=== PATIENT | female | born 1990 | race Two or more races ===

== ENCOUNTER 2024-07-01 18:41 | Emergency (ER) | payer SELFPAY ==
[~2024-07-01] VITALS: Ht 157.5 cm; Wt 54.0 kg
[2024-07-01 18:54] VITALS: BP 114/64; PULSE 90; RESP 17; O2SAT 99
[2024-07-01 19:13] LABS: Urine Bacteria None Seen /hpf (None Seen)
[2024-07-01 19:23] LABS: Urine Blood Negative /uL (Negative); Urine Clarity Clear (Clear); Urine Color Light-Yellow (Yellow); Urine Protein, UAD Negative (Negative); Urine Specific Gravity 1.008 (1.001-1.035); Urine Urobilinogen Normal (Negative); Urine WBC <1 /hpf (0 - 5); Urine pH 5.5 (5.0-9.0)
[2024-07-01 19:29] LABS: Basophils # (auto) 0 10 ^3/uL (0-0.2); Basophils % (auto) 0.3 % (0.0-2.0); Eosinophils # (auto) 0.1 10 ^3/uL (0-0.8); Eosinophils % (auto) 1.9 % (0.0-7.0); Hematocrit 41.3 % (36.0-46.0); Hemoglobin 14.4 g/dL (12.2-16.2); Lymphocytes # (auto) 1.2 10 ^3/uL (0.4-5.4); Lymphocytes % (auto) 26.6 % (10.0-50.0); Mean Corpuscular Hemoglobin 31.9 pg (28.0-32.0); Mean Corpuscular Hgb Conc. 34.7 g/dL (32.0-36.0); Mean Corpuscular Volume 91.9 fL (80.0-100.0); Monocytes # (auto) 0.4 10 ^3/uL (0-1.3); Monocytes % (auto) 9.2 % (0.0-12.0); Neutrophils # (auto) 2.8 10 ^3/uL (1.6-8.6); Nucleated Red Blood Cells % 0.1 %; Platelet Count (auto) 278 10^3/uL (140-450); Red Cell Distribution Width 12.5 % (11.8-14.3); White Blood Cell 4.5 10^3/uL (4.4-10.8)
[2024-07-01 19:46] LABS: Alanine Aminotransferase 14 U/L (7-40); Albumin 4.9 g/dL (3.2-4.8); Alkaline Phosphatase 67 U/L (46-116); Anion Gap 7 (5-15); Aspartate Aminotransferase 14 U/L (13-40); BUN/Creatinine Ratio 11.1 (10.0-20.0); Bilirubin, Total 0.5 mg/dL (0.2-1.0); Blood Urea Nitrogen 8 mg/dL (9-23); Calcium 9.5 mg/dL (8.7-10.4); Carbon Dioxide 25 mmol/L (20-31); Chloride 104 mmol/L (98-107); Glucose 94 mg/dL (74-106); Potassium 3.5 mmol/L (3.5-5.1); Sodium 136 mmol/L (136-145); Total Protein 7.3 g/dL (5.7-8.2)
[2024-07-02 02:35] LABS: Hepatitis B Surface Antibody Negative (Negative)
[2024-07-02 02:47] LABS: Hepatitis B Surface Antigen Negative (Negative)
== END 2024-07-01 21:22 | disposition home or self-care (01) ==
LOC: ER 18:41
DX: R19.7 Diarrhea, unspecified (principal); R10.2 Pelvic and perineal pain; R50.9 Fever, unspecified; Z77.21 Contact with and (suspected) exposure to potentially hazardous body fluids
CPT/HCPCS: 36415; 80053; 81001; 84702; 85025; 86703; 86706; 86803; 87340

== ENCOUNTER → 2024-08-28 | Outpatient (CLI) | payer BC ==
[2024-08-28 08:27] LABS: Basophils # (auto) 0 10 ^3/uL (0-0.2); Basophils % (auto) 0.5 % (0.0-2.0); Eosinophils # (auto) 0.1 10 ^3/uL (0-0.8); Eosinophils % (auto) 2.1 % (0.0-7.0); Hematocrit 41.5 % (36.0-46.0); Lymphocytes # (auto) 1.3 10 ^3/uL (0.4-5.4); Lymphocytes % (auto) 22.5 % (10.0-50.0); Mean Corpuscular Hgb Conc. 33.7 g/dL (32.0-36.0); Mean Corpuscular Volume 91.8 fL (80.0-100.0); Monocytes # (auto) 0.4 10 ^3/uL (0-1.3); Monocytes % (auto) 7.1 % (0.0-12.0); Neutrophils # (auto) 3.8 10 ^3/uL (1.6-8.6); Neutrophils % (auto) 67.8 % (37.0-80.0); Platelet Count (auto) 296 10^3/uL (140-450); Red Blood Cells 4.51 10^6/uL (4.0-5.20); Red Cell Distribution Width 12.7 % (11.8-14.3); White Blood Cell 5.6 10^3/uL (4.4-10.8)
[2024-08-28 08:35] LABS: Urine Bacteria FEW /hpf (None Seen); Urine Blood Negative /uL (Negative); Urine Budding Yeast OCCASIONAL /hpf (None Seen); Urine Clarity Turbid (Clear); Urine Color Colorless (Yellow); Urine Mucus FEW (None Seen); Urine Protein, UAD TRACE (Negative); Urine Specific Gravity 1.024 (1.001-1.035); Urine Urobilinogen Normal (Negative); Urine WBC 8 /hpf (0 - 5)
[2024-08-28 08:51] LABS: Alanine Aminotransferase 26 U/L (7-40); Albumin 4.5 g/dL (3.2-4.8); Alkaline Phosphatase 67 U/L (46-116); Anion Gap 7 (5-15); Aspartate Aminotransferase 15 U/L (13-40); BUN/Creatinine Ratio 13.6 (10.0-20.0); Bilirubin, Total 0.6 mg/dL (0.2-1.0); Blood Urea Nitrogen 9 mg/dL (9-23); Calcium 9.9 mg/dL (8.7-10.4); Carbon Dioxide 28 mmol/L (20-31); Chloride 104 mmol/L (98-107); Cholesterol 242 mg/dL (< 200); Glucose 95 mg/dL (74-106); HDL Cholesterol 77 mg/dL (40-59); LDL Cholesterol 144 mg/dL (< 100); Magnesium 2.2 mg/dL (1.6-2.6); Potassium 4.2 mmol/L (3.5-5.1); Sodium 139 mmol/L (136-145); Triglycerides 164 mg/dL (< 150)
[2024-08-28 09:12] LABS: Free T4 (Free Thyroxine) 1.33 ng/dL (0.89-1.76)
[2024-08-29 05:08] LABS: RPR Non Reactive (Non Reactive)
[2024-08-29 12:06] LABS: Chlamydia Trachomatis, NAA Negative (Negative); Neisseria gonorrhoeae, NAA Negative (Negative)
== END | disposition home or self-care (01) ==
LOC: LAB 07:54
DX: Z00.01 Encounter for general adult medical examination with abnormal findings (principal); Z11.3 Encounter for screening for infections with a predominantly sexual mode of transmission; E16.2 Hypoglycemia, unspecified
CPT/HCPCS: 36415; 80053; 80061; 81001; 82306; 82607; 83036; 83735; 84439; 84443; 85025; 86592; 86703; 86704; 86706; 86708; 86803; 87340

== ENCOUNTER 2024-10-07 19:03 | Inpatient (IN) | payer BC ==
[~2024-10-07] VITALS: Ht 157.5 cm; Wt 56.1 kg
--- NOTE | 2024-10-07 19:16 | ED.PDOC ---
HPI Comments 34 y.o female presents to the ED for a chief complaint of left sided chest pain. Patient describes pain as a pressure sensation that presented while at work, became sharp radiating to her head and associated with dizziness. Patient reports no syncopal event occurred and that dizziness shortly after subsided on its own. Patient states initial chest pressure presented 3 weeks ago but today worsened. 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 She denies any nausea, vomiting, diarrhea, abdominal pain, fever, chills, back pain or leg swelling. She denies medical history or allergies. Chief Complaint: Chest Pain Time Seen by MD: 19:08 Primary Care Provider: NONE Reviewed Notes: Nurses Notes, Medications, Allergies Allergies: Coded Allergies: NO KNOWN ALLERGIES (Unverified , 07/01/24) Information Source: Patient Mode of Arrival: Ambulatory Severity: Moderate Timing: Hours Duration: Since onset Location: Chest (L) Radiation: Other Quality: Pressure Onset: At Rest Cardiac Risk Factors: None PE Risk Factors: None History of: None Modifying Factors: Nothing Associated Signs and Symptoms: SOB Past Medical History PAST MEDICAL HISTORY: Denies Surgical History: Hernia Repair Surgical History (Other): breast augmentation, tummy tuck 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 SETTER 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 Family History Family History: Reviewed,noncontributory to illness, Unknown Social History Smoker: Non-Smoker Alcohol: Occasionally Drugs: Denies Drug Use Lives In: Home Constitutional: denies: chills, diaphoresis, fatigue, fever, malaise, sweats, weakness, others EENTM: denies: blurred vision, double vision, ear bleeding, ear discharge, ear drainage, ear pain, ear ringing, eye pain, eye redness, hearing loss, mouth pain, mouth swelling, nasal discharge, nose bleeding, nose congestion, nose pain, photophobia, tearing, throat pain, throat swelling, voice changes, others Respiratory: reports: SOB at rest, shortness of breath; denies: cough, hemoptysis, orthopnea, SOB with excertion, stridor, wheezing, others Cardiovascular: reports: chest pain; denies: dizzy spells, diaphoresis, Dyspnea on exertion, edema, irregular heart beat, left arm pain, lightheadedness, palpitations, PND, syncope, others Gastrointestinal: denies: abdomen distended, abdominal pain, blood streaked bowels, constipated, diarrhea, dysphagia, difficulty swallowing, hematemesis, melena, nausea, poor appetite, poor fluid intake, rectal bleeding, rectal pain, vomiting, others Genitourinary: denies: abnormal vagina bleeding, burning, dyspareunia, dysuria, flank pain, frequency, hematuria, incontinence, pain, , vagina discharge, urgency, others Neurological: reports: dizziness, headache; denies: fainting, left sided numbness, left sided weakness, numbness, paresthesia, pre-existing deficit, right sided numbness, right sided weakness, seizure, speech problems, tingling, tremors, weakness, others Musculoskeletal: denies: back pain, gout, joint pain, joint swelling, muscle pain, muscle stiffness, neck pain, others Integumetry: denies: bruises, change in color, change in hair/nails, dryness, laceration, lesions, lumps, rash, wounds, others Allergic/Immunocompromised: denies: Difficulty Healing, Frequent Infections, Hives, Itching, others Hematologic/Lymphatic: denies: anemia, blood clots, easy bleeding, easy bruising, swollen glands, others Endocrine: denies: excessive hunger, excessive sweating, excessive thirst, excessive urination, flushing, intolerance to cold, intolerance to heat, unexplained weight gain, unexplained weight loss, others Psychiatric: denies: anxiety, bipolar disorder, depression, hopeless, panic disorder, schizophrenia, sleepless, suicidal, others All Other Systems: Reviewed and Negative Physical Exam General Appearance: No Apparent Distress HEENT: Normal ENT Inspection, Pharynx Normal, TMs Normal Neck: Full Range of Motion, Non-Tender, Normal, Normal Inspection Respiratory: Chest Non-Tender, Lungs Clear, No Accessory Muscle Use, No Respiratory Distress, Normal Breath Sounds Cardiovascular: No Edema, No JVD, No Murmur, No Gallop, Normal Peripheral Pulses, Regular Rate/Rhythm Breast Exam: Deferred Gastrointestinal: No Organomegaly, Non Tender, No Pulsatile Mass, Normal Bowel Sounds, Soft Genitalia: Deferred Pelvic: Deferred Rectal: Deferred Extremities: No calf tenderness, Normal capillary refill, Normal inspection, Normal range of motion, Non-tender, No pedal edema Musculoskeletal : Apperance: Normal Neurologic: Alert, bed rubber II-XII nml as Tested, No Motor Deficits, Normal Affect, Normal Mood, No Sensory Deficits Cerebellar Function: Normal Reflexes: Normal Skin: Dry, Normal Color, Warm Lymphatic: No Adenopathy EKG EKG : Pulse Rate (adult): 100 Cardiac Rhythm: ST Was a procedure done? Was a procedure done?: No CP Differential Dx Differential Diagnosis: N/A Differential Diagnosis: Angina, Chest Wall Pain, Costochondritis, Esophageal reflux/spasm, Gastritis, Myocardial Infarction, Pericarditis X-Ray, Labs, Meds, VS Vital Signs Date Time Temp Pulse Resp B/P (MAP) Pulse Ox O2 Delivery O2 Flow Rate FiO2 10/07/24 19:16 100 10/07/24 19:06 100 10/07/24 19:04 98.9 102 16 159/75 (103) 100 Lab Test 10/07/24 19:59 10/07/24 19:13 Range/Units Troponin I High Sensitivity Pending < 3 L </=34 ng/L White Blood Count 8.0 4.4-10.8 10^3/uL Red Blood Count 4.54 4.0-5.20 10^6/uL Hemoglobin 14.0 12.2-16.2 g/dL Hematocrit 41.6 36.0-46.0 % Mean Corpuscular Volume 91.5 80.0-100.0 fL Mean Corpuscular Hemoglobin 30.8 28.0-32.0 pg Mean Corpuscular Hemoglobin Concent 33.7 32.0-36.0 g/dL Red Cell Distribution Width 12.7 11.8-14.3 % Platelet Count 294 140-450 10^3/uL Mean Platelet Volume 8.0 6.9-10.8 fL Neutrophils (%) (Auto) 59.6 37.0-80.0 % Lymphocytes (%) (Auto) 31.5 10.0-50.0 % Monocytes (%) (Auto) 6.8 0.0-12.0 % Eosinophils (%) (Auto) 1.1 0.0-7.0 % Basophils (%) (Auto) 1.0 0.0-2.0 % Neutrophils # (Auto) 4.8 1.6-8.6 10 ^3/uL Lymphocytes # (Auto) 2.5 0.4-5.4 10 ^3/uL Monocytes # (Auto) 0.5 0-1.3 10 ^3/uL Eosinophils # (Auto) 0.1 0-0.8 10 ^3/uL Basophils # (Auto) 0.1 0-0.2 10 ^3/uL Nucleated Red Blood Cells 0.0 % D-Dimer, Quantitative < 0.19 0.0-0.49 mg/L FEU Sodium Level 137 136-145 mmol/L Potassium Level 3.2 L 3.5-5.1 mmol/L Chloride Level 102 98-107 mmol/L Carbon Dioxide Level 26 20-31 mmol/L Anion Gap 9 5-15 Blood Urea Nitrogen 11 9-23 mg/dL Creatinine 0.77 0.550-1.02 mg/dL Glomerular Filtration Rate Calc 105 >90 mL/min BUN/Creatinine Ratio 14.3 10.0-20.0 Serum Glucose 109 H 74-106 mg/dL Calcium Level 10.2 8.7-10.4 mg/dL Magnesium Level 2.0 1.6-2.6 mg/dL Total Bilirubin 0.4 0.2-1.0 mg/dL Aspartate Amino Transferase (AST) 13 13-40 U/L Alanine Aminotransferase (ALT) 16 7-40 U/L Alkaline Phosphatase 68 46-116 U/L B-Type Natriuretic Peptide 4.76 0-100 pg/mL Total Protein 7.2 5.7-8.2 g/dL Albumin 4.8 3.2-4.8 g/dL EXAMINATION: AP portable chest radiograph CLINICAL HISTORY: CP COMPARISON: None FINDINGS: No dominant consolidation. The costophrenic angles appear clear. No sizable pleural effusions or pneumothorax identified. The cardiomediastinal silhouette appears within normal limits given technique. IMPRESSION: No acute cardiopulmonary findings as visualized. The patient is being discharged The CBC and chemistry panel is within normal limits The troponin level is negative The D-dimer is negative The patient will follow up with the primary care doctor The patient will return to the emergency department's the condition worsens. Images Reviewed?: Images reviewed and evaluated by me Time of 1ST Reevaluation: 19:12 Reevaluation 1ST: Unchanged Patient Education/Counseling: Diagnosis, Treatment, Prognosis, Need For Follow Up Family Education/Counseling: No Family Present Departure 1 Departure Time of Disposition: 20:20 Impression: Primary Impression: Non-cardiac chest pain Disposition: 01 HOME / SELF CARE / HOMELESS Condition: Fair Discharged With: Self Critical Care Note Critical Care Time?: No Stability Stability form required: No Heart Score Heart Score: Heart Score Response (Comments) Value History Slightly Suspicious 0 EKG Normal 0 Age <45 0 Risk Factors No known risk factors 0 Troponin Normal limit 0 Total 0 I personally scribed for SUSIE CEJA MD ([email or web address]) on 10/07/24 at 19:16. Electronically submitted by Penny Christina ([facility] I personally scribed for SUSIE CEJA MD ([email or web address]) on 10/07/24 at 19:49. Electronically submitted by Penny Christina ([facility]). SUSIE CEJA MD Oct 07, 2024 19:16
[2024-10-07 19:27] LABS: Basophils # (auto) 0.1 10 ^3/uL (0-0.2); Eosinophils # (auto) 0.1 10 ^3/uL (0-0.8); Eosinophils % (auto) 1.1 % (0.0-7.0); Hematocrit 41.6 % (36.0-46.0); Lymphocytes # (auto) 2.5 10 ^3/uL (0.4-5.4); Lymphocytes % (auto) 31.5 % (10.0-50.0); Mean Corpuscular Hemoglobin 30.8 pg (28.0-32.0); Mean Corpuscular Hgb Conc. 33.7 g/dL (32.0-36.0); Mean Corpuscular Volume 91.5 fL (80.0-100.0); Monocytes # (auto) 0.5 10 ^3/uL (0-1.3); Monocytes % (auto) 6.8 % (0.0-12.0); Neutrophils # (auto) 4.8 10 ^3/uL (1.6-8.6); Neutrophils % (auto) 59.6 % (37.0-80.0); Platelet Count (auto) 294 10^3/uL (140-450); Red Blood Cells 4.54 10^6/uL (4.0-5.20); Red Cell Distribution Width 12.7 % (11.8-14.3)
[2024-10-07 19:39] LABS: Alanine Aminotransferase 16 U/L (7-40); Alkaline Phosphatase 68 U/L (46-116); Anion Gap 9 (5-15); BUN/Creatinine Ratio 14.3 (10.0-20.0); Blood Urea Nitrogen 11 mg/dL (9-23); Calcium 10.2 mg/dL (8.7-10.4); Carbon Dioxide 26 mmol/L (20-31); Chloride 102 mmol/L (98-107); Sodium 137 mmol/L (136-145)
[2024-10-07 19:40] LABS: Bilirubin, Total 0.4 mg/dL (0.2-1.0); Total Protein 7.2 g/dL (5.7-8.2)
--- NOTE | 2024-10-07 19:41 | DVH ---
EXAMINATION: AP portable chest radiograph CLINICAL HISTORY: CP COMPARISON: None FINDINGS: No dominant consolidation. The costophrenic angles appear clear. No sizable pleural effusions or pne umothorax identified. The cardiomediastinal silhouette appears within normal limits given technique. IMPRESSION: No acute cardiopulmonary findings as visualized.
[2024-10-07 19:53] LABS: Albumin 4.8 g/dL (3.2-4.8); Aspartate Aminotransferase 13 U/L (13-40); Glucose 109 mg/dL (74-106); Potassium 3.2 mmol/L (3.5-5.1)
[2024-10-07] MEDS: ASPirin 81 mg TAB PO ONE (20:26)
--- NOTE | 2024-10-07 21:57 | DVH ---
EXAM: CT HEAD WITHOUT CONTRAST INDICATION: near syncope TECHNIQUE: CT of the head without intravenous contrast. Radiation Dose : 1. Head: CT Dose: CTDI volume is 57.6 mGy. Dose-length product is 1020 mGy*cm The dose indicators for CT are the volume Computed Tomography (CT) Dose Index (CTDIvol) and the Dose Length Product (DLP), and are measured in units of mGy and mGy-cm, respectively. These indicators are not patient dose, but values generated from the CT scanner acquisition factors. The report includes radiation exposure data for exposures received during this examination. COMPARISON: None FINDINGS: There is no evidence of acute intracranial hemorrhage, extra-axial collection, mass effect, midline s hift, herniation or hydrocephalus. The ventricles, sulci and cisterns are age appropriate. The navas-white differentiation is intact. Patchy periventricular and subcortical white matter hypoattenuation is nonspecific but may be related to small vessel ischemic disease. The visualized paranasal sinuses and mastoid air cells are clear. The surrounding soft tissues and osseous structures are unremarkable. IMPRESSION: 1. No acute intracranial abnormality. Radiation optimization: All CT scans at this facility use at least one of these dose optimization janna hniques: automated exposure control mA and/or kV adjustment per patient size (includes targeted exam s where dose is matched to clinical indication) or iterative reconstruction.
[2024-10-07 22:20] VITALS: BP 138/74; PULSE 96; RESP 15; TEMP 98; O2SAT 99
[2024-10-07] MEDS: POTASSIUM CHL 20 Meq TABLET PO ONE (23:41)
[2024-10-07 23:45] VITALS: PULSE 94; RESP 18; O2SAT 99
[2024-10-07] MEDS ORDERED: HYDROcodone-ACET 5/325MG TAB PO PRN (23:45)
[2024-10-07] MEDS ORDERED: NITROGLYCERIN 0.4 MG SL TAB SL PRN (23:45)
[2024-10-07] MEDS ORDERED: TEMAZEPAM 15 MG CAP PO PRN (23:45)
[2024-10-07] MEDS ORDERED: ACETAMINOPHEN 325 MG TAB PO PRN (23:45)
[2024-10-07] MEDS ORDERED: ONDANSETRON HCL 4 MG/2 ML VIAL IV PRN (23:45)
[2024-10-07] MEDS ORDERED: MORPHINE SULFATE INJ 2 MG/ml SYRG IV PRN (23:45)
[2024-10-07 23:51] VITALS: PULSE 94; RESP 18; O2SAT 99
--- NOTE | 2024-10-07 23:55 | DVHHP2 ---
History of Present Illness Reason for Visit: Chest pain History of Present Illness 34-year-old female presents for evaluation of chest pain. Patient reports medical history of asthma. States over the past three weeks having left-sided pressure-like chest pain that is nonradiating. She states having shortness for breath when laying flat and worsening pain when lying on her left side. Reports worsening symptoms with exertion. Reports having an episode of dizziness earlier today. Nausea or vomiting. No other acute complaints reported. Past Medical History Asthma Past Surgical History Breast augmentation and tummy tuck Family History Denies Smoke: No ALCOHOL: occassional Drugs: None Lives: with Family Review of Systems Review of Systems Review of systems are currently negative otherwise addressed in HPI. Allergies: Coded Allergies: NO KNOWN ALLERGIES (Unverified , 07/01/24) Medications Current Medications Medications Dose Ordered Sig/Prema Route Start Time Stop Time Status Last Admin Dose Admin Aspirin 81 mg DAILY PO 10/08/24 10:00 UNV Acetaminophen/ Hydrocodone Bitart 1 tab Q4HP PRN PO 10/07/24 23:45 UNV Temazepam 15 mg QHSP PRN PO 10/07/24 23:45 UNV Ondansetron HCl 4 mg Q4HP PRN IV 10/07/24 23:45 UNV Acetaminophen 650 mg Q6HP PRN PO 10/07/24 23:45 UNV Nitroglycerin 0.4 mg Q5MINP PRN SL 10/07/24 23:45 UNV Morphine Sulfate 2 mg Q30M PRN IV 10/07/24 23:45 UNV Albuterol 2.5 mg Q6HPRN PRN NEB 10/08/24 00:00 UNV Exam Vital Signs Vital Signs Date Time Temp Pulse Resp B/P (MAP) Pulse Ox O2 Delivery O2 Flow Rate FiO2 10/07/24 22:20 98.0 96 15 138/74 (95) 99 98.0 10/07/24 22:20 Room Air* 0 21 Exam Gen: 34-year-old female in no apparent distress. Skin: Warm, dry, normal color and texture, no rash. HEENT: Normocephalic atraumatic, mucous membranes moist and pink. Neck: Cervical and supraclavicular nodes normal without enlargement, trachea is midline, thyroid gland is normal without masses. Pulmonary: Clear to auscultation and percussion bilaterally. Cardiac: Regular rate and rhythm. No murmur Abdomen: Soft, nontender, nondistended, bowel sounds present all 4 quadrants, no guarding, no rigidity, no organomegaly. Extremities: No cyanosis, clubbing, no edema Neuro: Cranial nerves II through XII grossly intact, normal affect and speech, no focal motor deficits. Labs/Xrays ORDERING PHYSICIAN: MARILYN MURRY MD PROCEDURE(s): CXRP - CHEST PORTABLE REASON: CP ORDER NUMBER(s): [id number], ACCESSION NUMBER(s): [id number] EXAMINATION: AP portable chest radiograph CLINICAL HISTORY: CP COMPARISON: None FINDINGS: No dominant consolidation. The costophrenic angles appear clear. No sizable pleural effusions or pneumothorax identified. The cardiomediastinal silhouette appears within normal limits given technique. IMPRESSION: No acute cardiopulmonary findings as visualized. RING PHYSICIAN: SUSIE CEJA MD PROCEDURE(s): HWOCT - HEAD WITHOUT CONTRAST REASON: near syncope ORDER NUMBER(s): [id number], ACCESSION NUMBER(s): [id number] EXAM: CT HEAD WITHOUT CONTRAST INDICATION: near syncope TECHNIQUE: CT of the head without intravenous contrast. Radiation Dose : 1. Head: CT Dose: CTDI volume is 57.6 mGy. Dose-length product is 1020 mGy*cm The dose indicators for CT are the volume Computed Tomography (CT) Dose Index (CTDIvol) and the Dose Length Product (DLP), and are measured in units of mGy and mGy-cm, respectively. These indicators are not patient dose, but values generated from the CT scanner acquisition factors. The report includes radiation exposure data for exposures received during this examination. COMPARISON: None FINDINGS: There is no evidence of acute intracranial hemorrhage, extra-axial collection, mass effect, midline shift, herniation or hydrocephalus. The ventricles, sulci and cisterns are age appropriate. The navas-white differentiation is intact. Patchy periventricular and subcortical white matter hypoattenuation is nonspecific but may be related to small vessel ischemic disease. The visualized paranasal sinuses and mastoid air cells are clear. The surrounding soft tissues and osseous structures are unremarkable. IMPRESSION: 1. No acute intracranial abnormality. Radiation optimization: All CT scans at this facility use at least one of these dose optimization techniques: automated exposure control mA and/or kV adjustment per patient size (includes targeted exams where dose is matched to clinical indication) or iterative reconstruction. Labs Test 10/07/24 19:59 10/07/24 19:13 Range/Units Troponin I High Sensitivity < 3 L </=34 ng/L White Blood Count 8.0 4.4-10.8 10^3/uL Red Blood Count 4.54 4.0-5.20 10^6/uL Hemoglobin 14.0 12.2-16.2 g/dL Hematocrit 41.6 36.0-46.0 % Mean Corpuscular Volume 91.5 80.0-100.0 fL Mean Corpuscular Hemoglobin 30.8 28.0-32.0 pg Mean Corpuscular Hemoglobin Concent 33.7 32.0-36.0 g/dL Red Cell Distribution Width 12.7 11.8-14.3 % Platelet Count 294 140-450 10^3/uL Mean Platelet Volume 8.0 6.9-10.8 fL Neutrophils (%) (Auto) 59.6 37.0-80.0 % Lymphocytes (%) (Auto) 31.5 10.0-50.0 % Monocytes (%) (Auto) 6.8 0.0-12.0 % Eosinophils (%) (Auto) 1.1 0.0-7.0 % Basophils (%) (Auto) 1.0 0.0-2.0 % Neutrophils # (Auto) 4.8 1.6-8.6 10 ^3/uL Lymphocytes # (Auto) 2.5 0.4-5.4 10 ^3/uL Monocytes # (Auto) 0.5 0-1.3 10 ^3/uL Eosinophils # (Auto) 0.1 0-0.8 10 ^3/uL Basophils # (Auto) 0.1 0-0.2 10 ^3/uL Nucleated Red Blood Cells 0.0 % D-Dimer, Quantitative < 0.19 0.0-0.49 mg/L FEU Sodium Level 137 136-145 mmol/L Potassium Level 3.2 L 3.5-5.1 mmol/L Chloride Level 102 98-107 mmol/L Carbon Dioxide Level 26 20-31 mmol/L Anion Gap 9 5-15 Blood Urea Nitrogen 11 9-23 mg/dL Creatinine 0.77 0.550-1.02 mg/dL Glomerular Filtration Rate Calc 105 >90 mL/min BUN/Creatinine Ratio 14.3 10.0-20.0 Serum Glucose 109 H 74-106 mg/dL Calcium Level 10.2 8.7-10.4 mg/dL Magnesium Level 2.0 1.6-2.6 mg/dL Total Bilirubin 0.4 0.2-1.0 mg/dL Aspartate Amino Transferase (AST) 13 13-40 U/L Alanine Aminotransferase (ALT) 16 7-40 U/L Alkaline Phosphatase 68 46-116 U/L B-Type Natriuretic Peptide 4.76 0-100 pg/mL Total Protein 7.2 5.7-8.2 g/dL Albumin 4.8 3.2-4.8 g/dL Assessment/Plan Assessment/Plan Assessment Chest pain, etiology undetermined Hypokalemia Asthma Plan Admit the patient to telemetry to the hospitalist Cardiology consultation Echocardiogram pending Continue treatment per orders. Plan discussed with: Patient My Orders Orders - PETRA CROWLEY Procedure Category Date Status Time Aspirin Tablet PHA 10/08/24 Logged 10:00 Thyroid Stimulating LAB 10/07/24 Logged Hormone 23:42 * Cardiology Consult CONS 10/07/24 Transmitted 23:42 Basic Metabolic Panel LAB 10/08/24 Verified 04:00 Admit ADMIT 10/07/24 Transmitted 23:42 Hydrocodone-Acet PHA 10/07/24 Logged 5/325mg Tab ([place] 23:45 Temazepam (Restoril) PHA 10/07/24 Logged 23:45 Ondansetron Hcl PHA 10/07/24 Logged (Zofran) 23:45 Cardiac DIET 10/08/24 Transmitted Diet-2gna,Lofat,Lochol Breakfast Echo 2d Mode Cardiac US 10/07/24 Logged DOP 23:42 Condition: Fair SAMMIE 10/07/24 In Process 23:42 Acetaminophen Tablet PHA 10/07/24 Logged (Tylenol Tablet) 23:45 Bedrest With Bathroom SAMMIE 10/07/24 In Process Privileg 23:42 Nitroglycerin PHA 10/07/24 Logged Sublingual (Ntrostat 23:45 Morphine Sulfate PHA 10/07/24 Logged Injection 23:45 Stat Ekg For Chest [facility] 10/07/24 In Process Pain 23:42 Notify Md Of Changes [facility] 10/07/24 In Process From Base 23:42 Neurology Technician For [facility] 10/07/24 In Process 24 Hours 23:42 Emergency Dysrhythmia [facility] 10/07/24 In Process Protocol 23:42 Rhythm Strips Once [facility] 10/07/24 In Process Every Shift 23:42 Oxygen By Nasal RT 10/07/24 Transmitted Cannula 23:42 Albuterol Medneb PHA 10/08/24 Logged (Ventolin Medneb) 00:00 Date of Service: Oct 07, 2024 Billing Provider: PETRA CROWLEY Common Visit Codes: [id number] INP/OBS CARE (HIGH) PETRA CROWLEY Oct 07, 2024 23:55
[2024-10-07] MEDS: ALBUTEROL SULF 2.5 MG/0.5ML(0.5%) NEB SOLN ONE (23:59)
[2024-10-08] VITALS (12 sets, daily range): BP systolic 103–139; BP diastolic 59–82; PULSE 85–113; RESP 16–20; TEMP 97.5–98.6; O2SAT 97–100
[2024-10-08] MEDS: ALBUTEROL SULF 2.5 MG/0.5ML(0.5%) NEB SOLN NEB PRN (02:27)
--- NOTE | 2024-10-08 04:28 | ECG ---
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
[2024-10-08 06:14] LABS: COVID19 ANTIGEN SOFIA FIA NEGATIVE (NEGATIVE)
[2024-10-08 06:15] LABS: Rapid Influenza A Negative (Negative); Rapid Influenza B Negative (Negative)
[2024-10-08 07:52] LABS: Anion Gap 9 (5-15); Carbon Dioxide 25 mmol/L (20-31); Chloride 104 mmol/L (98-107); Potassium 3.7 mmol/L (3.5-5.1); Sodium 138 mmol/L (136-145)
[2024-10-08 07:58] LABS: BUN/Creatinine Ratio 10.3 (10.0-20.0)
[2024-10-08 08:01] LABS: Blood Urea Nitrogen 7 mg/dL (9-23); Glucose 113 mg/dL (74-106)
[2024-10-08] MEDS: ASPirin 81 mg TAB PO SCH (10:30)
--- NOTE | 2024-10-08 10:42 | ECG ---
[facility] Test Date: 2024-10-07 Test Time: 19:06:00 Pat Name: ERROL AARON Department: ER Room: 0237T A Gender: F Nurse Quality: MARIELLA : 1990 Requested By: MARILYN MURRY Order Number: [id number] Reading MD: Joon Anderson Measurements Intervals [place] Rate: 100 P: 48 NE: 127 QRS: 86 QRSD: 91 T: 12 QT: 338 QTc: 436 Interpretive Statements Sinus tachycardia Borderline T wave abnormalities Electronically Signed On 10-14-2024 14:56:05 PST by Joon Anderson Please click the below link to view image of tracing.
--- NOTE | 2024-10-08 10:46 | DVHSR ---
APPROVED REPORT EXAM: Two-dimensional and M-mode echocardiogram with Doppler and color Doppler. Blood Pressure: 132/67 mmHg INDICATION Chest Pain RISK FACTORS Height: 62, Weight: 141 DIMENSIONS LVDd3.9 (3.8-5.7cm)LA (2D)2.6 (1.9-4.0cm)Aortic Root2.9 (2.0-3.7cm) LVDs2.4 (2.5-4.0cm)LA (MM) (1.9-4.0cm)Aortic Cusp Exc1.8 (1.5-2.0cm) EF (%) 70.0 (55-70%)Rt. Atrium (1.9-4.0cm)Asc. Aorta cm IVSd0.9 (0.7-1.1cm)RV (D) (1.8-2.4cm) PWd0.9 (0.7-1.1cm) Mitral Valve MitralMitral Stenosis E/A ratio0.02D MVAcm2 Aortic Valve Aortic ValveAortic Stenosis LVOT Diameter1.9 (1.8-2.4cm)Doppler AVAcm2 Pulmonic Valve V21.09m/s LEFT VENTRICLE Normal left ventricular size. Wall thickness is normal. Ejection fraction is normal and is estimate d at 60-65% based on visual estimate. No regional wall motion abnormalities. Diastolic function is indeterminate. RIGHT VENTRICLE Likely of normal size and systolic function. ATRIA Left atrium was of normal size. Right atrium is not well visualized. MITRAL VALVE Normal structure and function. No significant mitral regurgitation. PULMONIC VALVE Likely normal. TRICUSPID VALVE Normal structure and function. No significant tricuspid regurgitation. PA systolic pressure is not adequately estimated. AORTIC VALVE Normal structure and function. GREAT VESSELS The aortic root is of normal size. Proximal ascending aorta is not well visualized. PERICARDIAL EFFUSION No pericardial effusion. IVC is not well visualized. Other Information Technically limited study due to patient has breast implants and laying flat during exam. Conclusion Study is technically limited. Normal left ventricular size and systolic function with ejection fraction of 65%. Likely normal right ventricular size and systolic function. No hemodynamically significant valvular disease. No pericardial effusion. PA systolic pressure is not adequately estimated.
--- NOTE | 2024-10-08 12:39 | DVHPN2 ---
Progress Note Date Seen: Oct 08, 2024 Medical Necessity Reason Pt with a Central, PICC or Fol: No Subjective Patient reports: No new complaints Review of Systems: HEENT:Normal, CVS:Normal, RESPIRATORY:Normal, GI:Normal, :Normal, MSK:Normal, NEURO:Normal Objective vital signs Vital Sign Date Time Temp Pulse Resp B/P (MAP) Pulse Ox O2 Delivery O2 Flow Rate FiO2 10/08/24 09:00 97.7 85 17 123/70 (87) 100 97.7 10/08/24 01:59 Room Air* 0 21 Total Intake and Output 10/07/24 10/07/24 10/08/24 15:00 23:00 07:00 Intake Total 0 ml Balance 0 ml medications Current Medications Medications Dose Ordered Sig/Prema Route Start Time Stop Time Status Last Admin Dose Admin Aspirin 81 mg DAILY PO 10/08/24 10:00 10/08/24 10:30 81 MG Acetaminophen/ Hydrocodone Bitart 1 tab Q4HP PRN PO 10/07/24 23:45 Temazepam 15 mg QHSP PRN PO 10/07/24 23:45 Ondansetron HCl 4 mg Q4HP PRN IV 10/07/24 23:45 Acetaminophen 650 mg Q6HP PRN PO 10/07/24 23:45 Nitroglycerin 0.4 mg Q5MINP PRN SL 10/07/24 23:45 Morphine Sulfate 2 mg Q30M PRN IV 10/07/24 23:45 Albuterol 2.5 mg Q6HPRN PRN NEB 10/08/24 00:00 10/08/24 02:27 2.5 MG Examination: GENERAL:Normal, HEENT:Normal, NECK:Normal, LUNGS:Normal, CVS:Normal, ABDOMEN:Normal, MSK:Normal, SKIN:Normal, NEURO:Normal, :Normal laboratory and microbiology Laboratory Tests 10/08/24 06:54 10/07/24 19:13 Test 10/08/24 06:54 Range/Units Serum Glucose 113 H 74-106 mg/dL Problem List/Assessment/Plan Problem List/Assessment/Plan #1 left chest discomfort/tachycardia: check thyroid panel #2 gerd: ppi #3 h/o asthma Plan discussed with: Patient Date of Service: Oct 08, 2024 Billing Provider: PETRA CLARK MD Common Visit Codes: [id number] INP/OBS CARE(HIGH) PETRA CLARK MD Oct 08, 2024 12:39
[2024-10-08 12:54] LABS: Erythrocyte Sedimentation Rate 5 mm/hr (0-20)
[2024-10-08] MEDS: PANTOPRAZOLE 40 MG/10 ML VIAL INJ IV ONE (12:56)
[2024-10-08 13:20] LABS: Free T3 3.53 pg/mL (2.3-4.2); Free T4 (Free Thyroxine) 1.16 ng/dL (0.89-1.76); Thyroid Stimulating Hormone 0.81 uIU/mL (0.55-4.78)
[2024-10-08 13:21] LABS: Beta HCG, Quantitative < 1.5 mIU/mL (1.5-4.2)
--- NOTE | 2024-10-08 18:35 | DVHINCON2 ---
Date Seen: Oct 08, [address] Crenshaw Reason for Consultation Chest pain History of Present Illness 34-year-old lady with a history of chest pain. This has been apparently going on for several weeks. It has been increasing in severity and intensity. She has been at times near syncopal. 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 She gets tachycardic as well. She has not had anything like this before in the past. She was seen in the emergency room and was kept given a near syncopal event as she got up to Step outside. No previous history of myocardial infarction. Syncopal events. No history of cardiac or significant respiratory anomalies. She has no other significant symptoms with the exception of chest pressure and shortness of breath. These are for the most part nonexertional. Her symptoms of dizziness and lightheaded occur when she gets up to move about. Past Medical History Her past medical history is negative for hypertension no history of coronary artery disease Past Surgical History Past surgical history significant for hernia repair. Status post breast augmentation and tummy tuck. Family History: FH: cholecystectomy G8 MOTHER G8 FATHER Family History Family history is negative for CAD. Social History Nondrinker nonsmoker. She is a single mother of three. Allergies: Coded Allergies: NO KNOWN ALLERGIES (Unverified , 07/01/24) Home Meds No Active Prescriptions or Reported Meds Current Medications Current Medications Medications (Trade) Dose Ordered Sig/Prema Route PRN Reason Start Time Stop Time Status Last Admin Aspirin 81 mg DAILY PO 10/08/24 10:00 10/08/24 10:30 Acetaminophen/ Hydrocodone Bitart (Cary 5/325MG Tab) 1 tab Q4HP PRN PO MODERATE PAIN (4-6 PAIN SCALE) 10/07/24 23:45 Temazepam (Restoril) 15 mg QHSP PRN PO FOR INSOMNIA 10/07/24 23:45 Ondansetron HCl (Zofran) 4 mg Q4HP PRN IV NAUSEA / VOMITING 10/07/24 23:45 Acetaminophen (Tylenol Tablet) 650 mg Q6HP PRN PO PAIN SCALE 1-3 OR TEMP>100.4 10/07/24 23:45 Nitroglycerin (Ntrostat Sublingual) 0.4 mg Q5MINP PRN SL FOR CHEST PAIN 10/07/24 23:45 Morphine Sulfate 2 mg Q30M PRN IV FOR CHEST PAIN 10/07/24 23:45 Albuterol (Ventolin Medneb) 2.5 mg Q6HPRN PRN NEB SHORTNESS OF BREATH 10/08/24 00:00 10/08/24 02:27 Pantoprazole Sodium (Protonix) 40 mg DAILY IV 10/09/24 10:00 Review of Systems No constitutional symptoms of fevers chills or weight loss. Neuro as noted above. Cardiac and respiratory as noted above. GI musculoskeletal endocrine hematologic oncologic dermatologic negative. Vital Signs Vital Signs Date Time Temp Pulse Resp B/P (MAP) Pulse Ox O2 Delivery O2 Flow Rate FiO2 10/08/24 17:00 97.5 101 20 139/82 (101) 97 97.5 10/08/24 12:38 Room Air 0.0 10/08/24 12:38 21 Physical Exam Her vital signs are as noted. She is not significantly orthostatic. HEENT examination is otherwise unremarkable orally well hydrated. Trachea central neck is supple thyroid is not palpable there is no jugular distention no bruits. Lungs reveal good air entry no rales or rhonchi. Heart exam reveals a regular S1-S2 no S3 or S4 gallop noted. Splitting of the 2nd heart sound is physiologic. She has a 1/6 systolic ejection murmur at the base. No heaves thrills audible. Abdominal examination is otherwise unremarkable. Bowel sounds are normoactive. Extremities show adequate perfusion without clubbing or cyanosis no edema. Neurologically intact. Labs/Diagnostic Data Labs Test 10/08/24 10:09 10/08/24 06:54 10/08/24 04:30 10/07/24 19:59 Range/Units Erythrocyte Sedimentation Rate 5 0-20 mm/hr C-Reactive Protein High Sensitivity 0.18 <1.0 mg/dL Thyroid Stimulating Hormone (TSH) 0.81 0.55-4.78 uIU/mL Free Thyroxine (T4) Calculated 1.16 0.89-1.76 ng/dL Free Triiodothyronine (T3) pg/mL 3.53 2.3-4.2 pg/mL Beta HCG, Quantitative < 1.5 L 1.5-4.2 mIU/mL Sodium Level 138 136-145 mmol/L Potassium Level 3.7 3.5-5.1 mmol/L Chloride Level 104 98-107 mmol/L Carbon Dioxide Level 25 20-31 mmol/L Anion Gap 9 5-15 Blood Urea Nitrogen 7 L 9-23 mg/dL Creatinine 0.68 0.550-1.02 mg/dL Glomerular Filtration Rate Calc 119 >90 mL/min BUN/Creatinine Ratio 10.3 10.0-20.0 Serum Glucose 113 H 74-106 mg/dL Calcium Level 10.0 8.7-10.4 mg/dL Influenza Type A Antigen Negative Negative Influenza Type B Antigen Negative Negative SARS-CoV-2 Antigen (Rapid) Negative NEGATIVE Troponin I High Sensitivity < 3 L </=34 ng/L Test 10/07/24 19:13 Range/Units White Blood Count 8.0 4.4-10.8 10^3/uL Red Blood Count 4.54 4.0-5.20 10^6/uL Hemoglobin 14.0 12.2-16.2 g/dL Hematocrit 41.6 36.0-46.0 % Mean Corpuscular Volume 91.5 80.0-100.0 fL Mean Corpuscular Hemoglobin 30.8 28.0-32.0 pg Mean Corpuscular Hemoglobin Concent 33.7 32.0-36.0 g/dL Red Cell Distribution Width 12.7 11.8-14.3 % Platelet Count 294 140-450 10^3/uL Mean Platelet Volume 8.0 6.9-10.8 fL Neutrophils (%) (Auto) 59.6 37.0-80.0 % Lymphocytes (%) (Auto) 31.5 10.0-50.0 % Monocytes (%) (Auto) 6.8 0.0-12.0 % Eosinophils (%) (Auto) 1.1 0.0-7.0 % Basophils (%) (Auto) 1.0 0.0-2.0 % Neutrophils # (Auto) 4.8 1.6-8.6 10 ^3/uL Lymphocytes # (Auto) 2.5 0.4-5.4 10 ^3/uL Monocytes # (Auto) 0.5 0-1.3 10 ^3/uL Eosinophils # (Auto) 0.1 0-0.8 10 ^3/uL Basophils # (Auto) 0.1 0-0.2 10 ^3/uL Nucleated Red Blood Cells 0.0 % D-Dimer, Quantitative < 0.19 0.0-0.49 mg/L FEU Magnesium Level 2.0 1.6-2.6 mg/dL Total Bilirubin 0.4 0.2-1.0 mg/dL Aspartate Amino Transferase (AST) 13 13-40 U/L Alanine Aminotransferase (ALT) 16 7-40 U/L Alkaline Phosphatase 68 46-116 U/L B-Type Natriuretic Peptide 4.76 0-100 pg/mL Total Protein 7.2 5.7-8.2 g/dL Albumin 4.8 3.2-4.8 g/dL Labs reviewed. They are for the most part unremarkable. EKG shows sinus rhythm with mild ST segment changes in the inferior lateral leads. Assessment Atypical chest pain and shortness of breath. Doubt coronary artery disease. ( although slightly abnormal EKG with ST segment changes in the inferior leads) Doubt pulmonary embolism. ( pending CTA). No significant postural changes to suggest postural orthostatic tachycardia Syndrome. doubt neurocardiogenic symptoms. Unlikely to have vasovagal events. Given low sedimentation rate doubt pericarditis.Consider stress and anxiety. No signs of sepsis fever or pain to account for tachycardia. Plan/Recommendation We will perform stress test in a.m.. Pending CTA of pulmonary arteries. Plan discussed with: Patient NYHA Physical activity limitations: Class2(Slight)fatigue,sob Date of Service: Oct 08, 2024 Billing Provider: SHAJI FRAZIER Sr., MD Cardiology Common Codes: 49620-BNPSMAC INP/OBS CARE (High) SHAJI FRAZIER Sr., MD Oct 08, 2024 18:35
[2024-10-08] MEDS: IOHEXOL 350 MG/ML 100ML IJ ONE ×2 (19:30→19:34)
--- NOTE | 2024-10-08 20:40 | DVH ---
EXAM: CT CT ANGIO CHEST CONTRAST History: RULE OUT PE Comparison Study: None available TECHNIQUE: A digital fish and game [employer] manager image was obtained. During the uneventful, intravenous administration of c ontrast material, multislice data acquisition was obtained through the chest. 3-D postprocessing is performed by technologist including MIP imaging Radiation Dose : CTDI vol 41.44 mGy, DLP 239.6 mGy*cm. Findings: Lungs: The lungs are clear. Pleura: Unremarkable Heart/Great vessels: The visualized heart is unremarkable. No cardiomegaly or pericardial effusion. N o pulmonary embolism, aneurysm, or dissection. Mediastinum: Unremarkable Soft tissues/Bones: Bilateral breast implants. The partially visualized upper abdomen is within normal limits. Impression: 1. No evidence of pulmonary embolism, aortic aneurysm, or dissection.
[2024-10-09 01:00] VITALS: BP 116/70; PULSE 75; RESP 18; TEMP 98; O2SAT 99
[2024-10-09 05:00] VITALS: BP 110/67; PULSE 74; RESP 18; TEMP 98.9; O2SAT 98
[2024-10-09 08:00] VITALS: PULSE 85
[2024-10-09 08:43] VITALS: BP 117/64; PULSE 92; RESP 16; TEMP 98.2; O2SAT 98
[2024-10-09] MEDS: REGADENOSON 0.4 MG/5 ML SYRG IV ONE ×2 (09:14→11:14)
[2024-10-09] MEDS: PANTOPRAZOLE 40 MG/10 ML VIAL INJ IV SCH (09:30)
[2024-10-09 09:36] VITALS: O2SAT 98
--- NOTE | 2024-10-09 10:46 | DVHDS2 ---
Discharge Summary Date of Admission Oct 07, 2024 at 23:42 Date of Discharge: Oct 09, 2024 Labs/Diagnostic Data: Laboratory Results Test 10/08/24 10:09 10/08/24 06:54 10/08/24 04:30 10/07/24 19:59 Erythrocyte Sedimentation Rate 5 mm/hr (0-20) C-Reactive Protein High Sensitivity 0.18 mg/dL (<1.0) Thyroid Stimulating Hormone (TSH) 0.81 uIU/mL (0.55-4.78) Free Thyroxine (T4) Calculated 1.16 ng/dL (0.89-1.76) Free Triiodothyronine (T3) pg/mL 3.53 pg/mL (2.3-4.2) Beta HCG, Quantitative < 1.5 mIU/mL (1.5-4.2) Sodium Level 138 mmol/L (136-145) Potassium Level 3.7 mmol/L (3.5-5.1) Chloride Level 104 mmol/L (98-107) Carbon Dioxide Level 25 mmol/L (20-31) Anion Gap 9 (5-15) Blood Urea Nitrogen 7 mg/dL (9-23) Creatinine 0.68 mg/dL (0.550-1.02) Glomerular Filtration Rate Calc 119 mL/min (>90) BUN/Creatinine Ratio 10.3 (10.0-20.0) Serum Glucose 113 mg/dL (74-106) Calcium Level 10.0 mg/dL (8.7-10.4) Influenza Type A Antigen Negative (Negative) Influenza Type B Antigen Negative (Negative) SARS-CoV-2 Antigen (Rapid) Negative (NEGATIVE) Troponin I High Sensitivity < 3 ng/L (</=34) Test 10/07/24 19:13 White Blood Count 8.0 10^3/uL (4.4-10.8) Red Blood Count 4.54 10^6/uL (4.0-5.20) Hemoglobin 14.0 g/dL (12.2-16.2) Hematocrit 41.6 % (36.0-46.0) Mean Corpuscular Volume 91.5 fL (80.0-100.0) Mean Corpuscular Hemoglobin 30.8 pg (28.0-32.0) Mean Corpuscular Hemoglobin Concent 33.7 g/dL (32.0-36.0) Red Cell Distribution Width 12.7 % (11.8-14.3) Platelet Count 294 10^3/uL (140-450) Mean Platelet Volume 8.0 fL (6.9-10.8) Neutrophils (%) (Auto) 59.6 % (37.0-80.0) Lymphocytes (%) (Auto) 31.5 % (10.0-50.0) Monocytes (%) (Auto) 6.8 % (0.0-12.0) Eosinophils (%) (Auto) 1.1 % (0.0-7.0) Basophils (%) (Auto) 1.0 % (0.0-2.0) Neutrophils # (Auto) 4.8 10 ^3/uL (1.6-8.6) Lymphocytes # (Auto) 2.5 10 ^3/uL (0.4-5.4) Monocytes # (Auto) 0.5 10 ^3/uL (0-1.3) Eosinophils # (Auto) 0.1 10 ^3/uL (0-0.8) Basophils # (Auto) 0.1 10 ^3/uL (0-0.2) Nucleated Red Blood Cells 0.0 % D-Dimer, Quantitative < 0.19 mg/L FEU (0.0-0.49) Magnesium Level 2.0 mg/dL (1.6-2.6) Total Bilirubin 0.4 mg/dL (0.2-1.0) Aspartate Amino Transferase (AST) 13 U/L (13-40) Alanine Aminotransferase (ALT) 16 U/L (7-40) Alkaline Phosphatase 68 U/L (46-116) B-Type Natriuretic Peptide 4.76 pg/mL (0-100) Total Protein 7.2 g/dL (5.7-8.2) Albumin 4.8 g/dL (3.2-4.8) Other Laboratory Tests 10/08/24 06:54 10/07/24 19:13 Brief Hx & Hospital Course: SEE DICTATED NOTE Condition at Discharge: Good Final Diagnosis/Problems List CHEST PAIN Discharge Disposition: Home Discharge Instruct/Medications Diet: Regular Activity: No Restrictions, As Tolerated Follow Up/Referral: FU WITH PCP Medications: DC HOME AFTER STRESS TEST RESULTS Discharge Statement: "Patient was advised to return to the ER or call 911 if any headaches, dizziness, shortness of breath, chest pain, abdominal pain, bleeding, fevers, or worsening of medical condition. Patient was counseled about treatment plan, medications, possible side effects, patientverbalized understanding. All questions were answered to the best of my ability. This discharge took greater then 30 minutes in planning, reviewing documentation, counseling the patient, and discussing with other team members." ASSESSMENT ASSESSMENT Assessment CHEST PAIN Date of Service: Oct 09, 2024 Billing Provider: PETRA CLARK MD Common Visit Codes: 41668-QGT/OBS DISCH DAY >30min PETRA CLARK MD Oct 09, 2024 10:46
--- NOTE | 2024-10-09 11:00 | DVHDS ---
DATE OF DISCHARGE: 10/09/2024 The patient is a 34-year-old lady who was admitted with complaints of chest pain. HOSPITAL COURSE: The patient had a CT angiography that was negative for PE. Head CT was negative. The patient had thyroid tests that were within normal limits. She is currently undergoing a stress test. She will be discharged if the stress test is negative to follow up with her primary in one week. FINAL DIAGNOSES: Therefore, 1. Chest pain, questionable musculoskeletal. 2. History of asthma. Time spent in discharge planning and review of plan with the patient and nursing was 37 minutes. MD TALAT Mobley/TABITHA TID: [id number] RECEIPT: [id number]
--- NOTE | 2024-10-09 11:17 | DVHSR ---
APPROVED REPORT Exam: Nuclear Stress Test BMI: 0 Stress Test Details HR Max Heart Rate (APMHR): 188 bpm Target HR (85% APMHR): 160 bpm BP ECG Stress ECG Conclusion Review of the myocardial perfusion images during stress demonstrated homogeneous radiotracer uptake t hroughout the left ventricular myocardium. Left ventricular volumes are normal. Ejection fraction i s normal and is estimated at 73%. There is no significant transient ischemic dilatation. No gated i mages are available to assess for wall motion abnormalities. Impressions: 1. Low risk myocardial perfusion scan with no evidence of ischemia or prior infarction. 2. Normal left ventricular systolic function. NM EXAM: Myocardial Perfusion REST/STRESS Imaging Protocol: Rest Tc-99m/Stress Tc-99m 1 day Resting Data Rest SPECT myocardial perfusion imaging was performed in supine position 60 minutes following the int ravenous injection of 14.3 mCi of Tc-99m Sestamibi. Time of rest injection: 0805 Time of rest imagin Administration Route: IV Administration Site: Left Arm Pharmacologic Stress Pharmacologic stress test was performed by injecting Regadenoson 0.4 mg IV push followed by the intra venous injection of 31 mCi of Tc-99m Sestamibi. Time of stress injection: 0915 Time of stress imagin Administration Route: IV Administration Site: Left Arm Gated Stress SPECT was performed 60 minutes after stress injection. The images were gated to evaluate regional wall motion and calculate left ventricular ejection fracti on. Stress only was performed in the Supine position. Nuclear Conclusion ECG Findings: equivocal Clinical Findings: negative for ischemia Nuclear Findings: negative for ischemia Exercise Capacity: not assessed Left Ventricular Function: normal Risk Study: low Review of the myocardial perfusion images during stress demonstrated homogeneous radiotracer uptake t hroughout the left ventricular myocardium. Left ventricular volumes are normal. Ejection fraction i s normal and is estimated at 73%. There is no significant transient ischemic dilatation. No gated i mages are available to assess for wall motion abnormalities. Impressions: 1. Low risk myocardial perfusion scan with no evidence of ischemia or prior infarction. 2. Normal left ventricular systolic function.
== END 2024-10-09 11:50 | disposition home or self-care (01) | DRG 313 ==
LOC: EEVIPCON 19:03 → ER 19:03 → TELE 23:42 → TELE-EAST 10-08 01:52
PROVIDERS: ADMIT Nurse Practitioner; ATTEND Internal Medicine
DX: R07.89 Other chest pain (principal); E87.6 Hypokalemia; Z20.822 Contact with and (suspected) exposure to COVID-19; K21.9 Gastro-esophageal reflux disease without esophagitis; J45.909 Unspecified asthma, uncomplicated; Z79.899 Other long term (current) drug therapy
CPT/HCPCS: 36415; 70450; 71045; 71275; 78452; 80048; 80053; 83735; 83880; 84439; 84443; 84481; 84484; 84702; 85025; 85379; 85652; 86141; 87426; 87804; 93005; 93017; 93306; 94640; G0378; J2470

== ENCOUNTER → 2024-10-29 | Outpatient (CLI) | payer BC ==
[2024-10-29 10:11] LABS: Basophils # (auto) 0 10 ^3/uL (0-0.2); Basophils % (auto) 0.4 % (0.0-2.0); Eosinophils # (auto) 0.1 10 ^3/uL (0-0.8); Eosinophils % (auto) 0.9 % (0.0-7.0); Hematocrit 40.3 % (36.0-46.0); Hemoglobin 13.5 g/dL (12.2-16.2); Lymphocytes # (auto) 1.3 10 ^3/uL (0.4-5.4); Mean Corpuscular Hemoglobin 30.9 pg (28.0-32.0); Mean Corpuscular Hgb Conc. 33.4 g/dL (32.0-36.0); Mean Corpuscular Volume 92.6 fL (80.0-100.0); Monocytes # (auto) 0.3 10 ^3/uL (0-1.3); Neutrophils # (auto) 4.8 10 ^3/uL (1.6-8.6); Neutrophils % (auto) 73.7 % (37.0-80.0); Platelet Count (auto) 300 10^3/uL (140-450); Red Blood Cells 4.35 10^6/uL (4.0-5.20); Red Cell Distribution Width 12.7 % (11.8-14.3); White Blood Cell 6.5 10^3/uL (4.4-10.8)
[2024-10-29 12:12] LABS: Alanine Aminotransferase 14 U/L (7-40); Albumin 4.6 g/dL (3.2-4.8); Alkaline Phosphatase 65 U/L (46-116); Anion Gap 7 (5-15); Aspartate Aminotransferase 11 U/L (13-40); BUN/Creatinine Ratio 13.6 (10.0-20.0); Blood Urea Nitrogen 9 mg/dL (9-23); Calcium 9.4 mg/dL (8.7-10.4); Carbon Dioxide 28 mmol/L (20-31); Chloride 104 mmol/L (98-107); Cholesterol 195 mg/dL (< 200); Glucose 89 mg/dL (74-106); LDL Cholesterol 119 mg/dL (< 100); Potassium 4.2 mmol/L (3.5-5.1); Sodium 139 mmol/L (136-145); Triglycerides 86 mg/dL (< 150)
[2024-10-29 12:13] LABS: Bilirubin, Total 0.4 mg/dL (0.2-1.0); Total Protein 6.7 g/dL (5.7-8.2)
[2024-10-29 12:14] LABS: HDL Cholesterol 66 mg/dL (40-59)
== END | disposition home or self-care (01) ==
LOC: LAB 09:40
PROVIDERS: ATTEND Nurse Practitioner Family
DX: K21.9 Gastro-esophageal reflux disease without esophagitis (principal); R73.03 Prediabetes; E78.5 Hyperlipidemia, unspecified; E55.9 Vitamin D deficiency, unspecified
CPT/HCPCS: 36415; 80053; 80061; 82306; 83036; 84443; 85025